=== PATIENT | female | born 1945 | race Caucasian/White ===

== ENCOUNTER → 2024-03-12 08:59 | Outpatient (REF) | payer MEDICARE, BC, SELFPAY | LOC: HWRCS 08:59 | PROVIDERS: ATTENDING PHYSICIAN Internal Medicine Cardiovascular Disease; FAMILY PHYSICIAN Internal Medicine | DX: R60.9 Edema, unspecified (principal); R06.09 Other forms of dyspnea | CPT/HCPCS: 93306 ==

== ENCOUNTER → 2024-03-13 09:33 | Outpatient (REF) | payer MEDICARE, BC, SELFPAY ==
[2024-03-13 12:22] LABS: ALT (SGPT) 20 U/L (0-35); AST (SGOT) 25 U/L (14-36); Albumin 4.3 g/dl (3.5-5.0); Alkaline Phosphatase 65 U/L (38-126); Blood Urea Nitrogen 27 mg/dl (7-17); Carbon Dioxide 31 mmol/L (22-30); Chloride 98 mmol/L (98-107); Glucose 133 mg/dl (70-99); HDL Cholesterol 50 mg/dl; LDL Cholesterol, Calculated 66 mg/dl; Potassium 4.4 mmol/L (3.5-5.1); Sodium 137 mmol/L (135-145); Total Bilirubin 0.4 mg/dl (0.2-1.3); Total Cholesterol 144 mg/dl (50-199); Total Protein 6.9 g/dl (6.3-8.2); Triglyceride 141 mg/dl (10-149); Very Low Density Lipoprotein 28 mg/dl (0-30); eGFR 51.11
== END ==
LOC: HWLAB 09:33
PROVIDERS: ATTENDING PHYSICIAN Internal Medicine Cardiovascular Disease; FAMILY PHYSICIAN Internal Medicine; OTHER PHYSICIAN Internal Medicine Rheumatology; REFERRING PHYSICIAN Internal Medicine Endocrinology, Diabetes & Metabolism
DX: E78.00 Pure hypercholesterolemia, unspecified (principal); I10 Essential (primary) hypertension; I49.3 Ventricular premature depolarization
CPT/HCPCS: 36415; 80053; 80061

== ENCOUNTER → 2024-04-14 10:18 | Outpatient (REF) | payer MEDICARE, BC, SELFPAY ==
[2024-04-14 12:10] LABS: Hematocrit 37.8 % (37.0-47.0); Hemoglobin 12.6 g/dL (12.0-16.0); Mean Corp Hgb Conc. 33.3 g/dL (33.0-37.0); Mean Corpuscular Hgb 27.1 pg (27.0-31.0); Mean Corpuscular Volume 81.3 fL (81.0-99.0); Mean Platelet Volume 10.7 fL (7.4-10.4); Platelet Count 294 10^3/uL (130-400); Red Blood Cell Count 4.65 10^6/uL (4.20-5.40); Red Cell Dist. Width 13.8 % (11.5-14.5); White Blood Cell Count 8.2 10^3/uL (4.8-10.8)
[2024-04-14 12:50] LABS: ALT (SGPT) 18 U/L (0-35); AST (SGOT) 21 U/L (14-36); Albumin 4.6 g/dl (3.5-5.0); Alkaline Phosphatase 86 U/L (38-126); Blood Urea Nitrogen 29 mg/dl (7-17); Calcium 10.7 mg/dl (8.4-10.2); Carbon Dioxide 29 mmol/L (22-30); Chloride 98 mmol/L (98-107); Glucose 199 mg/dl (70-99); Potassium 4.9 mmol/L (3.5-5.1); Sodium 137 mmol/L (135-145); Total Bilirubin 0.5 mg/dl (0.2-1.3); Total Protein 6.9 g/dl (6.3-8.2); eGFR 51.11
[2024-04-17 01:51] LABS: Free Kappa Light Chains,Quant 25.68 mg/L (3.30-19.40); Free Lambda Light Chains,Quant 17.67 mg/L (5.71-26.30); IgA 164 mg/dL (68-408); IgG 683 mg/dL (768-1632); IgM 49 mg/dL (35-263); Immunofixation Electrophoresis IFE Done; Kappa/Lambda Fr Light Ratio 1.45 (0.26-1.65)
== END ==
LOC: HWLAB 10:18
PROVIDERS: ATTENDING PHYSICIAN Internal Medicine Hematology & Oncology; FAMILY PHYSICIAN Internal Medicine
DX: R77.9 Abnormality of plasma protein, unspecified (principal)
CPT/HCPCS: 36415; 80053; 82784; 83521; 84155; 84165; 85027; 86334

== ENCOUNTER → 2024-04-16 09:31 | Outpatient (REF) | payer MEDICARE, BC, SELFPAY | LOC: HWLAB 09:31 | PROVIDERS: ATTENDING PHYSICIAN Internal Medicine Hematology & Oncology; FAMILY PHYSICIAN Internal Medicine; REFERRING PHYSICIAN Internal Medicine Cardiovascular Disease | DX: R77.9 Abnormality of plasma protein, unspecified (principal) | CPT/HCPCS: 81050; 83521; 84156; 86335 ==

== ENCOUNTER → 2024-08-20 10:22 | Outpatient (REF) | payer MEDICARE, BC, SELFPAY ==
[2024-08-20 12:43] LABS: Blood Urea Nitrogen 25 mg/dl (7-17); Calcium 10.2 mg/dl (8.4-10.2); Carbon Dioxide 30 mmol/L (22-30); Chloride 97 mmol/L (98-107); Glucose 121 mg/dl (70-99); Potassium 3.8 mmol/L (3.5-5.1); Sodium 142 mmol/L (135-145); eGFR 57.31
[2024-08-20 13:18] LABS: NT-proBNP 95.5 pg/ml
== END ==
LOC: HWLAB 10:22
PROVIDERS: ATTENDING PHYSICIAN Internal Medicine Cardiovascular Disease; FAMILY PHYSICIAN Internal Medicine
DX: I50.30 Unspecified diastolic (congestive) heart failure (principal)
CPT/HCPCS: 36415; 80048; 83880

== ENCOUNTER → 2024-12-28 08:51 | Outpatient (REF) | payer MEDICARE, BC, SELFPAY ==
[2024-12-28 12:25] LABS: Hematocrit 35.6 % (37.0-47.0); Hemoglobin 11.8 g/dL (12.0-16.0); Mean Corp Hgb Conc. 33.1 g/dL (33.0-37.0); Mean Corpuscular Hgb 27.3 pg (27.0-31.0); Mean Corpuscular Volume 82.2 fL (81.0-99.0); Mean Platelet Volume 10.9 fL (7.4-10.4); Platelet Count 269 10^3/uL (130-400); Red Blood Cell Count 4.33 10^6/uL (4.20-5.40); White Blood Cell Count 7.1 10^3/uL (4.8-10.8)
[2024-12-28 13:00] LABS: ALT (SGPT) 19 U/L (0-35); AST (SGOT) 23 U/L (14-36); Albumin 4.7 g/dl (3.5-5.0); Alkaline Phosphatase 76 U/L (38-126); Blood Urea Nitrogen 29 mg/dl (7-17); Calcium 10.7 mg/dl (8.4-10.2); Carbon Dioxide 28 mmol/L (22-30); Chloride 97 mmol/L (98-107); Glucose 119 mg/dl (70-99); HDL Cholesterol 43 mg/dl; LDL Cholesterol, Calculated 70 mg/dl; Potassium 3.8 mmol/L (3.5-5.1); Sodium 138 mmol/L (135-145); Total Bilirubin 0.8 mg/dl (0.2-1.3); Total Cholesterol 142 mg/dl (50-199); Triglyceride 149 mg/dl (10-149); Very Low Density Lipoprotein 29 mg/dl (0-30); eGFR 57.31
[2024-12-28 13:01] LABS: Protein/creatinine Ratio 0.5; Urine Protein 26 mg/dl
[2024-12-28 13:05] LABS: Microalbumin, Random Urine 12.9 mg/dl (0.6-1.7); Microalbumin/creatinine Ratio 266.5 mg/g
[2024-12-28 13:24] LABS: TSH 0.31 uIU/ml (0.47-4.68)
== END ==
LOC: HWLAB 08:51
PROVIDERS: ATTENDING PHYSICIAN Physician Assistant; FAMILY PHYSICIAN Internal Medicine
DX: E11.65 Type 2 diabetes mellitus with hyperglycemia (principal)
CPT/HCPCS: 36415; 80053; 80061; 82043; 82570; 83036; 84156; 84443; 85027

== ENCOUNTER → 2025-02-10 10:30 | Outpatient (REF) | payer MEDICARE, BC, SELFPAY | LOC: HWRAD 10:30 | PROVIDERS: ATTENDING PHYSICIAN Internal Medicine Gastroenterology; FAMILY PHYSICIAN Internal Medicine | DX: R19.7 Diarrhea, unspecified (principal) | CPT/HCPCS: 74019 ==

== ENCOUNTER 2025-03-20 08:41 | Outpatient (RCR) | payer MEDICARE, BC, SELFPAY ==
[2025-03-19 09:08] LABS: Glucose - Point of Care 251 mg/dl (70-99)
[2025-03-19 10:09] LABS: Glucose - Point of Care 207 mg/dl (70-99)
== END 2025-03-20 23:59 | disposition home or self-care (01) ==
LOC: CRHB 08:41
PROVIDERS: ATTENDING PHYSICIAN Surgery Vascular Surgery
DX: I70.213 Atherosclerosis of native arteries of extremities with intermittent claudication, bilateral legs (principal)
CPT/HCPCS: 82962; 93668

== ENCOUNTER 2025-04-19 11:57 | Outpatient (RCR) | payer MEDICARE, BC, SELFPAY ==
[2025-03-22 09:11] LABS: Glucose - Point of Care 165 mg/dl (70-99)
[2025-03-22 09:58] LABS: Glucose - Point of Care 150 mg/dl (70-99)
[2025-03-24 09:26] LABS: Glucose - Point of Care 240 mg/dl (70-99)
[2025-03-24 10:19] LABS: Glucose - Point of Care 190 mg/dl (70-99)
[2025-03-26 09:16] LABS: Glucose - Point of Care 255 mg/dl (70-99)
[2025-03-26 10:06] LABS: Glucose - Point of Care 210 mg/dl (70-99)
[2025-03-29 09:20] LABS: Glucose - Point of Care 258 mg/dl (70-99)
[2025-03-29 10:24] LABS: Glucose - Point of Care 145 mg/dl (70-99)
[2025-03-31 09:23] LABS: Glucose - Point of Care 224 mg/dl (70-99)
[2025-03-31 10:25] LABS: Glucose - Point of Care 184 mg/dl (70-99)
[2025-04-02 09:19] LABS: Glucose - Point of Care 219 mg/dl (70-99)
[2025-04-02 10:16] LABS: Glucose - Point of Care 181 mg/dl (70-99)
[2025-04-05 09:10] LABS: Glucose - Point of Care 238 mg/dl (70-99)
[2025-04-05 10:14] LABS: Glucose - Point of Care 212 mg/dl (70-99)
[2025-04-07 09:17] LABS: Glucose - Point of Care 229 mg/dl (70-99)
[2025-04-07 10:13] LABS: Glucose - Point of Care 197 mg/dl (70-99)
[2025-04-09 09:16] LABS: Glucose - Point of Care 181 mg/dl (70-99)
[2025-04-09 10:11] LABS: Glucose - Point of Care 157 mg/dl (70-99)
[2025-04-14 09:14] LABS: Glucose - Point of Care 272 mg/dl (70-99)
[2025-04-14 10:07] LABS: Glucose - Point of Care 207 mg/dl (70-99)
[2025-04-16 09:09] LABS: Glucose - Point of Care 236 mg/dl (70-99)
[2025-04-16 10:07] LABS: Glucose - Point of Care 255 mg/dl (70-99)
[2025-04-19 11:10] LABS: Glucose - Point of Care 191 mg/dl (70-99)
[2025-04-19 11:59] LABS: Glucose - Point of Care 134 mg/dl (70-99)
== END 2025-04-19 23:59 | disposition home or self-care (01) ==
LOC: CRHB 11:57
PROVIDERS: ATTENDING PHYSICIAN Internal Medicine Cardiovascular Disease
DX: I70.213 Atherosclerosis of native arteries of extremities with intermittent claudication, bilateral legs (principal)
CPT/HCPCS: 82962; 93668

== ENCOUNTER 2025-05-19 09:39 | Outpatient (RCR) | payer MEDICARE, BC, SELFPAY ==
[2025-04-21 09:28] LABS: Glucose - Point of Care 291 mg/dl (70-99)
[2025-04-21 10:19] LABS: Glucose - Point of Care 260 mg/dl (70-99)
[2025-04-28 09:11] LABS: Glucose - Point of Care 218 mg/dl (70-99)
[2025-04-28 10:09] LABS: Glucose - Point of Care 166 mg/dl (70-99)
[2025-04-30 09:13] LABS: Glucose - Point of Care 240 mg/dl (70-99)
[2025-04-30 10:10] LABS: Glucose - Point of Care 141 mg/dl (70-99)
[2025-05-03 09:32] LABS: Glucose - Point of Care 261 mg/dl (70-99)
[2025-05-03 10:05] LABS: Glucose - Point of Care 275 mg/dl (70-99)
[2025-05-10 09:32] LABS: Glucose - Point of Care 280 mg/dl (70-99)
[2025-05-10 10:23] LABS: Glucose - Point of Care 170 mg/dl (70-99)
[2025-05-12 10:53] LABS: Glucose - Point of Care 179 mg/dl (70-99)
[2025-05-12 11:40] LABS: Glucose - Point of Care 116 mg/dl (70-99)
[2025-05-14 09:22] LABS: Glucose - Point of Care 194 mg/dl (70-99)
[2025-05-14 10:11] LABS: Glucose - Point of Care 137 mg/dl (70-99)
[2025-05-17 11:07] LABS: Glucose - Point of Care 232 mg/dl (70-99)
[2025-05-17 11:54] LABS: Glucose - Point of Care 223 mg/dl (70-99)
[2025-05-19 09:16] LABS: Glucose - Point of Care 286 mg/dl (70-99)
[2025-05-19 10:06] LABS: Glucose - Point of Care 204 mg/dl (70-99)
== END 2025-05-19 23:59 | disposition home or self-care (01) ==
LOC: CRHB 09:39
PROVIDERS: ATTENDING PHYSICIAN Internal Medicine Cardiovascular Disease
DX: I70.213 Atherosclerosis of native arteries of extremities with intermittent claudication, bilateral legs (principal)
CPT/HCPCS: 82962; 93668

== ENCOUNTER 2025-05-21 09:06 | Outpatient (RCR) | payer MEDICARE, BC, SELFPAY ==
[2025-05-21 09:25] LABS: Glucose - Point of Care 238 mg/dl (70-99)
[2025-05-21 10:19] LABS: Glucose - Point of Care 176 mg/dl (70-99)
== END 2025-05-25 14:10 | disposition home or self-care (01) ==
LOC: CRHB 09:06
PROVIDERS: ATTENDING PHYSICIAN Internal Medicine Cardiovascular Disease; FAMILY PHYSICIAN Internal Medicine
DX: I70.213 Atherosclerosis of native arteries of extremities with intermittent claudication, bilateral legs (principal)
CPT/HCPCS: 82962; 93668

== ENCOUNTER 2025-05-31 14:29 | Outpatient (RCR) | payer MEDICARE, BC, SELFPAY | END 2025-05-31 23:59 | disposition home or self-care (01) | LOC: RPT 14:29 | PROVIDERS: ATTENDING PHYSICIAN Internal Medicine Gastroenterology; FAMILY PHYSICIAN Internal Medicine | DX: R15.9 Full incontinence of feces (principal); M62.89 Other specified disorders of muscle; K59.00 Constipation, unspecified; N39.3 Stress incontinence (female) (male); Z73.6 Limitation of activities due to disability | CPT/HCPCS: 97014; 97112; 97140; 97163; 97530 ==

== ENCOUNTER 2025-06-02 07:37 | Emergency (ER) | payer MEDICARE, BC, SELFPAY ==
[2025-06-02 07:38] VITALS: BP 158/87
--- NOTE | 2025-06-02 08:07 | ED.GENMED ---
History of Present Illness
General
Chief Complaint: Musculo-Skeletal Complaint
Source: patient
Exam Limitations: none
Time Seen by Provider: 06/02/25 07:48
History of Present Illness
History of Present Illness:
See MDM
Past History
Past History
ED Past Medical History: GERD, HTN, Hypercholesterolemia and Other (Patient has irritable bowel syndrome, hiatal hernia, diverticulitis, rheumatoid arthritis, osteopenia, bilateral total knee replacements,)
ED Past Surgical History: Cholecystectomy and Other (Patient has had hysterectomy, hand surgery, and total bilateral knee replacement)
Social History
Tobacco: Former smoker
Alcohol: None
Drug: None
Personal:
Living: with family
Employment: Retired
Phy Exam
Physical Exam
Physical Exam:
See MDM
Course
Orders/Labs/Results
Orders:
Orders
06/02/25 08:05
Ketorolac [Toradol] 15 mg IV NOW STA
Shoulder, Left, Trauma CR [CR Shoulder, Trauma - Left] Urgent
Comment:
Reason For Exam: left shoulder pain
06/02/25 08:06
Electrocardiogram (*1) Urgent
Reason for Study: Other
Other Reason for Exam: Left arm pain
EKG- Treatment ONCE
06/02/25 08:07
Tramadol HCl [Ultram] 25 mg PO ONCE ONE
06/02/25 09:52
Complete Blood Count/With Diff Urgent
Comprehensive Metabolic Panel Urgent
Troponin I Urgent
Abnormal Lab Results
06/02/25
09:52
Absolute Neuts (auto) 6.6 H 10^3/uL
(1.4-6.5)
Absolute Monos (auto) 1.0 H 10^3/uL
(0.1-0.6)
Lymphocytes % 14.6 L %
(20.5-51.1)
Monocytes % 10.4 H %
(1.7-9.3)
BUN 27 H mg/dl
(7-17)
Creatinine 1.1 H mg/dL
(0.6-1.0)
Glucose 175 H mg/dl
(70-99)
Calcium 10.6 H mg/dl
(8.4-10.2)
06/02/25 09:52
06/02/25 09:52
Vital Signs
Initial and Last Documented VS:
Initial Vital Signs
Temp Pulse Resp BP Pulse Ox
98.8 F 89 16 158/87 97
06/02/25 07:38 06/02/25 07:38 06/02/25 07:38 06/02/25 07:38 06/02/25 07:38
Last Documented Vital Signs
Temp Pulse Resp BP Pulse Ox
98.8 F 89 16 158/87 96
06/02/25 07:38 06/02/25 07:38 06/02/25 07:38 06/02/25 07:38 06/02/25 10:57
MDM/Problems Addressed
Differential Diagnosis Includes:
Note:
CHIEF COMPLAINT(S)
Left arm pain
HISTORY OF PRESENT ILLNESS
The patient is an 80-year-old female presenting with pain in her left arm that has persisted for four days. She reported the onset of the pain during the day, with a progressive increase in severity over subsequent days. The pain began in one area
and then expanded to encompass the entire arm. The patient noted that the pain is exacerbated by use of the arm and denies any overuse or heavy lifting preceding the onset of pain. There has been no associated rash. The patient has a history of a
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
PAST MEDICAL AND SURGICAL HISTORY
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
CHRONIC MEDICAL CONDITIONS SIGNIFICANTLY AFFECTING CARE
The patient mentions having arthritis, which may impact her arm and shoulder function.
ALLERGIES
The patient reports allergies to morphine and most antibiotics but did not specifically list which antibiotics.
MEDICATIONS
The patient takes a baby aspirin daily (81 mg).
PHYSICAL EXAM
General: Alert, no acute distress.
Skin: Warm, dry.
Head: Normocephalic, atraumatic
Neck: Nontender, supple, trachea midline.
Eyes, Ears, Nose, Mouth, and Throat: Oral mucosa moist.
Cardiovascular: No signs of cyanosis
Respiratory: Respirations are non-labored.
Abdomen: Non-distended
Musculoskeletal: Tenderness to palpation of left deltoid. No rash. Pain with left shoulder abduction and external rotation. Decreased range of motion secondary to pain. Distal extremity neurovascular intact
Neurological: No focal neurological deficit observed.
Psychiatric: Cooperative, appropriate mood and affect.
PROBLEM LIST
Acute Problems:
- Left arm pain
- Possible rotator cuff or tendonitis involvement
Chronic Problems:
- Arthritis
PLAN
- Conduct blood work and an Electrocardiogram to rule out cardiac causes.
- Perform an X-ray of the left shoulder to assess for musculoskeletal issues.
- Administer intravenous Toradol for pain management, considering her allergy history and gastrointestinal concerns.
- If initial workup is normal, recommend follow-up with orthopedics for possible Magnetic Resonance Imaging and discussion regarding possible steroid injections or physical therapy.
- Monitor for potential side effects from the medication.
DIFFERENTIAL DIAGNOSIS
The Differential Diagnosis includes, in no particular order and is not limited to:
1. Rotator cuff injury
2. Tendonitis
3. Bursitis
4. Frozen shoulder (adhesive capsulitis)
5. Osteoarthritis of the shoulder
6. Cervical radiculopathy
7. Cardiovascular event (e.g., myocardial infarction)
8. Peripheral nerve entrapment
9. Trauma-related injury
10. Referred pain from visceral organs
SUMMARY OF ENCOUNTER
The patient, an 80-year-old female, presented to the emergency department with left arm pain persisting for four days. The pain gradually increased in severity and was exacerbated by arm movement. She has a history of stroke secondary to an optical
migraine and arthritis. Physical examination revealed tenderness on palpation of the left arm, potentially indicative of a rotator cuff or tendon involvement. An x-ray of the left shoulder was conducted, and upon reassessment, it was determined to
be consistent with calcific tendonitis. The patient was treated with intravenous Toradol for pain relief and discussed the management plan further, including avoiding the use of a shoulder sling and acknowledging the need for outpatient follow-up
with orthopedics. Additionally, the potential for opioid-related constipation was discussed.
DISPOSITION
Discharge
ASSESSMENT
The patient is assessed to have calcific tendonitis based on the X-ray findings.
EMERGENCY TREATMENTS ADMINISTERED
Intravenous Toradol was administered for pain management, considering the patients history of allergy to morphine and most antibiotics.
MANAGEMENT OF THE PATIENTS CARE WAS DISCUSSED WITH
The plan for outpatient follow-up with orthopedics was discussed with the patient.
REASSESSMENT
After administration of Toradol, the patient reported feeling somewhat better. Reassessment confirmed consistency with calcific tendonitis on the x-ray.
PLAN
The patient was recommended to follow up with orthopedics on an outpatient basis. It was advised to avoid using a shoulder sling to prevent potential adhesive capsulitis.
INDEPENDENT REVIEW OF LABS AND INTERPRETATION OF TESTS
My independent interpretation of the shoulder x-ray indicates findings consistent with calcific tendonitis.
PATIENT EDUCATION AND COUNSELING
The patient was educated about the possible side effect of opioids, specifically constipation, the importance of avoiding a shoulder sling to prevent adhesive capsulitis, and the management of her condition.
FOLLOW-UP INSTRUCTIONS
The patient was instructed to schedule a follow-up appointment with orthopedics as an outpatient.
MEDICATION RECONCILIATION
- Administered intravenously: Toradol
MEDICAL DECISION MAKING
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 Differential Diagnosis includes rotator cuff injury, tendonitis, bursitis, frozen shoulder
(adhesive capsulitis), osteoarthritis of the shoulder, cervical radiculopathy, cardiovascular event, peripheral nerve entrapment, trauma-related injury, and referred pain from visceral organs.
- Data:
Category 1
My independent interpretation of the shoulder x-ray indicates findings consistent with calcific tendonitis.
Category 3
Discussion of management with patient regarding outpatient follow-up with orthopedics and management implications of x-ray findings.
- Risk:
Consideration of Admission/Observation: Escalation of care including admission/observation was considered given the complexity and risk of the patients presenting complaint, exam findings, and/or their underlying comorbidities. However, ultimately I
feel the patient is safe for outpatient management with close follow-up. Reasoning: Work-up reassuring, does not reveal any acute life/organ threatening processes, patients symptoms well controlled upon reevaluation, reexamination is reassuring,
vitals are stable, patient agreeable with discharge, reliable for follow-up.
DIAGNOSIS
Calcific tendonitis of shoulder (ICD-10: M75.3)
*Pulse Oximetry
SaO2: 97
Oxygen Mode of Delivery: Room air
Patient hypoxic: no
*Critical Care Note
Total Time (30-74mins, 75-104mins- exclusive of procedures): Not Applicable
ED Attending Note
-
Portions of this chart may have been created with voice recognition software.� Occasional wrong word or��sound alike� substitutions may have occurred due to the inherent limitations of voice recognition software.
Discharge Plan
Departure
Patient Disposition: Home (Routine Discharge)
Date of Disposition: 06/02/25
Time of Disposition: 12:20
Patient with high blood pressure during this ER visit?: No
Discharge Problem:
Calcific tendonitis of left shoulder
Prescriptions:
New
tramadol 50 mg tablet
50 mg PO BID PRN (Reason: pain) Qty: 14 0RF
No Action
lansoprazole [Prevacid] 30 MG capsule,delayed release(DR/EC)
30 mg PO BID
folic acid 1 MG tablet
1 mg PO DAILY
Co Q-10 300 MG capsule
300 mg PO HS
levalbuterol tartrate 1 PUFF HFA aerosol inhaler
2 puff inhalation R Q4HPRN PRN (Reason: shortness of breath)
ezetimibe 10 MG tablet
10 mg PO HS
calcium polycarbophil [Fiber-Tabs] 625 MG tablet
625 mg PO DAILY
insulin degludec [Tresiba FlexTouch U-200] 200 UNIT/ML insulin pen
16 unit SC DAILY
glipizide 10 mg Tablet Extended Release 24hr
10 mg PO DAILY
flaxseed oil 1,000 mg Capsule
1,000 mg PO DAILY
docusate sodium [Stool Softener] 100 mg Capsule
100 mg PO DAILY
zolpidem 5 mg tablet
5 mg PO HSPRN PRN (Reason: sleep)
Patient Comments:
11/03/2023: last filled 10/03/23, 30 tabs for 30 days from [facility]#[id number]
furosemide 20 mg Tablet
20 mg PO DAILY
rosuvastatin 5 mg tablet
5 mg PO HS
Centrum Silver Women 8 mg iron-400 mcg-50 mcg Tablet
1 tab PO DAILY
Tart Gonzalez Extract 1,000 mg Capsule
1,200 mg PO DAILY
Qvar RediHaler 40 mcg/actuation Hfa Aerosol Breath Activated
2 inh INHALATION R BIDPRN PRN (Reason: sob)
magnesium oxide 400 mg magnesium Tablet
800 mg PO BID
Vazalore 81 mg Capsule
81 mg PO DAILY
hydralazine 50 mg Tablet
75 mg PO TID
Visbiome 112.5 billion cell Capsule
1 cap PO DAILY
spironolactone 25 mg Tablet
75 mg PO DAILY Qty: 0 0RF
cefdinir 300 mg capsule
300 mg PO BID Qty: 24 0RF
Rx Instructions:
start today
Referrals:
Frantz Cadet MD [Active, Orthopedics]
Jacinto Thomas MD [Family Provider, Internal Medicine]
Activity Restrictions/Additional Instructions:
Please return for any worsening symptoms.
You may return at any time if you have further concerns.
Please follow up with the orthopedist at the first available appointment, preferably this week.
You were given a prescription for narcotics. If you require this pain medicine, please take a daily [id number] stool softener to avoid constipation.
Thank you for choosing [facility].
Interventions
Interventions:
*Risk Screen - Suicide Last Done: 06/02/25 07:40
*General Assessment Last Done: 06/02/25 08:58
*Neglect/Abuse Screening Last Done: 06/02/25 07:40
*ED- Fall Risk Assessment Last Done: 06/02/25 08:58
*ED COVID-19 Vaccine History Last Done: 06/02/25 08:58
ED-Musculoskeletal Assessment Last Done: 06/02/25 09:25
Discharge Date and Time
Print Language: ISRAELI
[2025-06-02 08:57] VITALS: BMI 33.8
[2025-06-02] MEDS: ULTRAM 25 MG PO (09:12)
[2025-06-02 10:11] LABS: Hematocrit 38.1 % (37.0-47.0); Hemoglobin 12.7 g/dL (12.0-16.0); Mean Corp Hgb Conc. 33.3 g/dL (33.0-37.0); Mean Corpuscular Volume 81.8 fL (81.0-99.0); Nucleated Red Blood Cells % 0 %; Platelet Count 268 10^3/uL (130-400); Red Cell Dist. Width 14.2 % (11.5-14.5)
[2025-06-02 10:32] LABS: ALT (SGPT) 20 U/L (0-35); AST (SGOT) 24 U/L (14-36); Albumin 4.7 g/dl (3.5-5.0); Alkaline Phosphatase 76 U/L (38-126); Blood Urea Nitrogen 27 mg/dl (7-17); Calcium 10.6 mg/dl (8.4-10.2); Carbon Dioxide 30 mmol/L (22-30); Chloride 100 mmol/L (98-107); Estimated Creatinine Clearance 46 ml/min; Glucose 175 mg/dl (70-99); Potassium 4.3 mmol/L (3.5-5.1); Sodium 137 mmol/L (135-145); Total Protein 7.4 g/dl (6.3-8.2); eGFR 50.80
[2025-06-02 10:41] LABS: Troponin I < 0.012 ng/ml
== END 2025-06-02 12:49 | disposition home or self-care (01) ==
LOC: EMR 07:37
PROVIDERS: EMERGENCY PHYSICIAN Student in an Organized Health Care Education/Training Program; FAMILY PHYSICIAN Internal Medicine
DX: M75.32 Calcific tendinitis of left shoulder (principal); E78.00 Pure hypercholesterolemia, unspecified; I10 Essential (primary) hypertension; M06.9 Rheumatoid arthritis, unspecified; Z86.73 Personal history of transient ischemic attack (TIA), and cerebral infarction without residual deficits; Z79.82 Long term (current) use of aspirin
CPT/HCPCS: 99284; 73030; 80053; 84484; 85025; 93005

== ENCOUNTER → 2025-07-12 08:10 | Outpatient (REF) | payer MEDICARE, BC, SELFPAY ==
[2025-07-12 09:58] LABS: Hematocrit 37.1 % (37.0-47.0); Hemoglobin 12.3 g/dL (12.0-16.0); Mean Corp Hgb Conc. 33.2 g/dL (33.0-37.0); Mean Corpuscular Volume 82.6 fL (81.0-99.0); Nucleated Red Blood Cells % 0 %; Platelet Count 298 10^3/uL (130-400); Red Cell Dist. Width 13.5 % (11.5-14.5)
[2025-07-12 11:00] LABS: ALT (SGPT) 20 U/L (0-35); AST (SGOT) 22 U/L (14-36); Albumin 4.4 g/dl (3.5-5.0); Alkaline Phosphatase 84 U/L (38-126); Blood Urea Nitrogen 21 mg/dl (7-17); Calcium 10.2 mg/dl (8.4-10.2); Carbon Dioxide 30 mmol/L (22-30); Chloride 101 mmol/L (98-107); Glucose 139 mg/dl (70-99); HDL Cholesterol 53 mg/dl; LDL Cholesterol, Calculated 71 mg/dl; Potassium 4.4 mmol/L (3.5-5.1); Sodium 138 mmol/L (135-145); Total Protein 7.0 g/dl (6.3-8.2); Very Low Density Lipoprotein 36 mg/dl (0-30); eGFR 56.95
[2025-07-12 11:05] LABS: Microalb - Urine Creatinine 134.500 mg/dl
[2025-07-12 11:10] LABS: TSH 3.16 uIU/ml (0.47-4.68)
[2025-07-12 12:21] LABS: Glycohemoglobin (HgbA1c) 8.7 % (4.0-5.6)
[2025-07-12 12:26] LABS: Microalbumin, Random Urine 49.0 mg/dl (0.6-1.7)
== END ==
LOC: HWLAB 08:10
PROVIDERS: ATTENDING PHYSICIAN Physician Assistant; FAMILY PHYSICIAN Internal Medicine
DX: E11.65 Type 2 diabetes mellitus with hyperglycemia (principal)
CPT/HCPCS: 36415; 80053; 80061; 82043; 82570; 83036; 84156; 84443; 85025

== ENCOUNTER 2025-07-16 06:21 | Day surgery (SDC) | payer MEDICARE, BC, SELFPAY ==
[2025-07-16] VITALS (8 sets, daily range): BP systolic 15–200; BP diastolic 70–104; BMI 31.6
[2025-07-16 08:22] LABS: Glucose - Point of Care 170 mg/dl (70-99)
[2025-07-16] MEDS: TYLENOL 1000 MG PO (08:36)
[2025-07-16] MEDS: NORMOSOL-R/PLASMALYTE-A 1000 IV (08:37)
--- NOTE | 2025-07-16 09:53 | W.IMMPOSTOP ---
Addendum entered and electronically signed by Manuel Feliciano MD 07/16/25 10:12:
updated over the phone
Original Note:
Surgical Immed Post Op Note
-
Primary Surgeon: Manuel Feliciano MD
Assisting Surgeon: HUGO Spencer
Pre-op Diagnosis: Anal stricture
Post-op Diagnosis: Anal stricture, rectal polyp
Procedure Performed: Flexible sigmoidoscopy, cold snare polypectomy, exam under anesthesia, biopsy of anal stricture, bilateral pudendal nerve block
Anesthesia Type: Sedation with local
Specimen / Cultures: Rectal polyp, posterior biopsy superficial (of anal stricture), posterior biopsy deep (of anal stricture)
Estimated Blood Loss: 5 mL
Complications: None
Operative Findings: On flexible sigmoidoscopy, advance to 10 cm before encountering solid stool; identified a semipedunculated mid rectal polyp, about 4 mm; performed snare polypectomy (resection complete and specimen obtained); and EUA, identified
a benign-appearing scar in the mid anal canal posteriorly; no palpable mass; performed tangential biopsy (posterior biopsy superficial) as well as full-thickness true�cut biopsy (posterior biopsy deep); hemostasis achieved with electrocautery and
left Surgicel in the anal canal
--- NOTE | 2025-07-16 09:59 | OR.RPT ---
Operative Report
Operative Report
DATE OF OPERATION: 07/16/2025
SURGEON: Manuel Feliciano MD
PREOPERATIVE DIAGNOSIS: Anal stricture
POSTOPERATIVE DIAGNOSIS: Anal stricture, rectal polyp
OPERATION: Flexible sigmoidoscopy, cold snare polypectomy, exam under anesthesia, anal stricture biopsy, bilateral pudendal nerve block
ASSISTANTS:
1. HUGO Spencer
ANESTHESIA: Sedation with local
ESTIMATED BLOOD LOSS: 5 mL
FINDINGS:
1. On flexible sigmoidoscopy, semipedunculated 4 mm mid-rectal polyp, performed cold snare polypectomy; no other concerning findings except mildly erythematous mucosa in the posterior proximal anal canal
2. On EUA, no palpable masses identified; posterior stricture noted in the mid-anal canal; performed tangential biopsy and full-thickness biopsy
3. Short anal canal, about 1.5 to 2 cm in length
SPECIMENS:
1. Rectal polyp
2. Posterior biopsy superficial (of anal stricture)
3. Posterior biopsy deep (of anal stricture)
DRAINS: None
COMPLICATIONS: None
INDICATIONS: The patient is a 80-year-old female who presented with complaint of 'difficulty during pelvic floor exam'. She is undergoing pelvic floor physical therapy for fecal incontinence. When they tried to do an exam, they were unable to
advance the probe into the anal canal due to narrowing. On the subsequent exam, they were able to advance the probe, but they recommended evaluation by colorectal. On my exam in the office, there was some palpable nodularity posteriorly associated
with a mild stenosis. Therefore, the patient was recommended to have surgery for a complete exam with possible biopsies to rule out malignancy. The operation was discussed with the patient in detail, including the risks, benefits and alternatives.
Risks described included, but not limited to bleeding, infection, urinary retention, damage to nearby structures such as the anal sphincter and anesthetic risks. The patient understood and agreed to proceed. The consent was signed and placed in the
chart.
PROCEDURE IN DETAIL: The patient was taken to the operating room. Sequential compression devices were placed bilaterally. The patient was placed on the operating table in prone position. Sedation was commenced without complication. Two seat belts
were secured around the legs and upper back. The buttocks were taped apart. A time-out was performed verifying the correct patient, procedure, operative site, positioning, and special equipment.
I began with flexible sigmoidoscopy. I performed a digital rectal exam with lubrication. There was the palpable nodularity posteriorly, but no other masses. The lubricated sigmoidoscope was inserted transanally and advanced under direct
visualization. Due to solid stool in the rectosigmoid junction, I advanced the scope to about 10 cm. I slowly withdrew. I identified a semipedunculated polyp in the mid rectum. I performed a snare polypectomy. The polyp was completely removed
and the specimen was retrieved. There was minimal bleeding. I performed retroflexion in the rectum. There was no mass seen protruding into the rectum or proximal anal canal. There was some mild erythema in the posterior proximal anal canal. The
sigmoidoscope was removed.
The perineum was prepped and draped in the usual fashion. Local anesthesia used was a mixture of 30 mL of 0.25% Marcaine with epinephrine, 30mL of 1% lidocaine plain and 0.6 mg of dexamethasone. 40 mL was injected perianally at the beginning of the
case. The anorectal exam was performed assessing all four quadrants of the anal canal using Hill-Nunez retractors in progressively increasing size. The palpable nodularity posteriorly was seen as a band across the mid anal canal in the posterior
quadrant. This appeared benign in nature. There was no palpable masses. The nodularity was thick like scar tissue. I performed 2 tangential gentle biopsies with forceps and Metzenbaum scissors. I performed additional full-thickness biopsies
with the Arthur-Cut biopsy device. Hemostasis was assured with electrocautery. There were no other concerning findings.
The remaining 20 mL of local were injected. 5 mL was injected bilaterally for a pudendal nerve block. 10 mL was injected around the surgical site and perianally. Hemostasis was reassessed once more using the small Hill-Nunez and was confirmed.
Surgicel was placed in the operative site prophylactically.
At this point, the procedure was complete. All needle, sponge and instrument counts were correct. The patient tolerated the procedure well and was transferred to the recovery room in stable condition with gauze dressing in place secured with silk
tape.
The assistance of HUGO Spencer was required for retraction. I was present for the entire duration of the case.
DICTATED BY: Manuel Feliciano MD
[2025-07-16 10:00] LABS: Glucose - Point of Care 186 mg/dl (70-99)
== END 2025-07-16 11:17 | disposition home or self-care (01) ==
LOC: SDS 06:21
PROVIDERS: ATTENDING PHYSICIAN Surgery
DX: K62.4 Stenosis of anus and rectum (principal); D12.8 Benign neoplasm of rectum
CPT/HCPCS: 45100; 45338; 11102; 11103; 82962; 88305

== ENCOUNTER 2025-07-19 11:39 | Outpatient (RCR) | payer MEDICARE, BC, SELFPAY | END 2025-07-19 23:59 | disposition home or self-care (01) | LOC: RPT 11:39 | PROVIDERS: ATTENDING PHYSICIAN Internal Medicine Gastroenterology; FAMILY PHYSICIAN Internal Medicine | DX: R15.9 Full incontinence of feces (principal); M62.89 Other specified disorders of muscle; K59.00 Constipation, unspecified; N39.3 Stress incontinence (female) (male); Z73.6 Limitation of activities due to disability | CPT/HCPCS: 97014; 97112; 97140; 97530 ==

== ENCOUNTER 2025-08-16 07:50 | Outpatient (RCR) | payer MEDICARE, BC, SELFPAY | END 2025-08-16 23:59 | disposition home or self-care (01) | LOC: RPT 07:50 | PROVIDERS: ATTENDING PHYSICIAN Internal Medicine Gastroenterology; FAMILY PHYSICIAN Internal Medicine | DX: R15.9 Full incontinence of feces (principal); M62.89 Other specified disorders of muscle; K59.00 Constipation, unspecified; N39.3 Stress incontinence (female) (male); Z73.6 Limitation of activities due to disability | CPT/HCPCS: 97014; 97112; 97140; 97530 ==

== ENCOUNTER → 2025-08-17 08:45 | Outpatient (REF) | payer MEDICARE, BC, SELFPAY | LOC: RAD 08:45 | PROVIDERS: ATTENDING PHYSICIAN Surgery Vascular Surgery; FAMILY PHYSICIAN Internal Medicine; REFERRING PHYSICIAN Podiatrist Foot & Ankle Surgery | DX: I77.9 Disorder of arteries and arterioles, unspecified (principal) | CPT/HCPCS: 93922; 93925 ==

== ENCOUNTER 2025-09-14 06:21 | Day surgery (SDC) | payer MEDICARE, BC, SELFPAY ==
[2025-09-14 07:47] LABS: Glucose - Point of Care 159 mg/dl (70-99)
== END 2025-09-14 10:13 | disposition home or self-care (01) ==
LOC: GI 06:21
PROVIDERS: ATTENDING PHYSICIAN Surgery
DX: Z12.11 Encounter for screening for malignant neoplasm of colon (principal); K57.30 Diverticulosis of large intestine without perforation or abscess without bleeding; K62.4 Stenosis of anus and rectum; K56.699 Other intestinal obstruction unspecified as to partial versus complete obstruction; D12.2 Benign neoplasm of ascending colon; D12.3 Benign neoplasm of transverse colon; Z86.0100 Personal history of colon polyps, unspecified
CPT/HCPCS: 45385; 82962; 88305

== ENCOUNTER 2025-10-07 14:55 | Outpatient (RCR) | payer MEDICARE, BC, SELFPAY | END 2025-10-07 23:59 | disposition home or self-care (01) | LOC: RPT 14:55 | PROVIDERS: ATTENDING PHYSICIAN Internal Medicine Gastroenterology; FAMILY PHYSICIAN Internal Medicine | DX: R15.9 Full incontinence of feces (principal); M62.89 Other specified disorders of muscle; K59.00 Constipation, unspecified; N39.3 Stress incontinence (female) (male); Z73.6 Limitation of activities due to disability | CPT/HCPCS: 97014; 97110; 97112; 97140; 97530 ==

== ENCOUNTER → 2025-10-12 09:36 | Outpatient (REF) | payer MEDICARE, BC, SELFPAY | LOC: PAVMRI 09:36 | PROVIDERS: ATTENDING PHYSICIAN Otolaryngology Facial Plastic Surgery; FAMILY PHYSICIAN Internal Medicine | DX: D11.0 Benign neoplasm of parotid gland (principal) | CPT/HCPCS: 70543; A9575 ==

== ENCOUNTER → 2025-10-13 09:04 | Outpatient (REF) | payer MEDICARE, BC, SELFPAY ==
[2025-10-13 12:44] LABS: Blood Urea Nitrogen 19 mg/dl (7-17)
== END ==
LOC: HWLAB 09:04
PROVIDERS: ATTENDING PHYSICIAN Otolaryngology Facial Plastic Surgery; FAMILY PHYSICIAN Internal Medicine
DX: D11.0 Benign neoplasm of parotid gland (principal)
CPT/HCPCS: 36415; 82565; 84520

== ENCOUNTER → 2025-10-16 08:32 | Outpatient (REF) | payer MEDICARE, BC, SELFPAY | LOC: PAVMRI 08:32 | PROVIDERS: ATTENDING PHYSICIAN Internal Medicine | DX: M48.062 Spinal stenosis, lumbar region with neurogenic claudication (principal) | CPT/HCPCS: 72148 ==